=== PATIENT | male | born 1965 | race Caucasian/White ===

== ENCOUNTER 2020-10-24 06:18 | Inpatient (IN) | payer BC ==
[~2020-10-24] VITALS: Ht 177.8 cm; Wt 79.2 kg
[2020-10-24] MEDS ORDERED: SODIUM CHLORIDE FLUSH 10ML SYR IVF ONE (07:00)
[2020-10-24 07:06] LABS: BASOPHILS % (AUTO) 0 % (0-1); EOSINOPHILS % (AUTO) 0 % (1-7); LYMPHOCYTES % (AUTO) 7 % (22-44); MEAN CORPUSCULAR HEMOGLOBIN 31.3 pg (27.5-34.5); MEAN CORPUSCULAR HGB CONC 33.7 g/dL (33.2-36.2); MEAN PLATELET VOLUME 8.9 fL (7.4-10.4); MONOCYTES % (AUTO) 4 % (2-9); NEUTROPHILS % (AUTO) 88 % (42-75); PLATELET COUNT 219 x10^3/uL (130-400); RED BLOOD COUNT 4.37 x10^6/uL (4.38-5.82); RED CELL DISTRIBUTION WIDTH 12.5 % (9.4-14.8)
[2020-10-24 07:14] LABS: ALANINE AMINOTRANSFERASE 38 U/L (12-78); ALBUMIN 3.9 g/dL (3.4-5.0); ANION GAP 8 mmol/L (5-15); CALCIUM 8.5 mg/dL (8.5-10.1); CHLORIDE 103 mmol/L (98-107); CREATININE 0.95 mg/dL (0.7-1.3)
[2020-10-24 07:18] LABS: ALKALINE PHOSPHATASE 52 U/L (45-117); BILIRUBIN,TOTAL 0.5 mg/dL (0.2-1.0); TOTAL PROTEIN 7.2 g/dL (6.4-8.2)
[2020-10-24 07:20] LABS: MD SCAN
[2020-10-24] MEDS ORDERED: ASPIRIN 81 MG TABLET CHEW ONE ×2 (07:21→09:01)
[2020-10-24] MEDS ORDERED: ONDANSETRON 2MG/ML, 2ML ONE (07:21)
[2020-10-24] MEDS ORDERED: ONDANSETRON 2MG/ML, 2ML IVPush ONE (07:30)
[2020-10-24] MEDS ORDERED: ASPIRIN 81 MG TABLET CHEW PO ONE ×2 (07:30→09:00)
--- NOTE | 2020-10-24 07:31 | NUR ---
PT LAYING ON JOSE, FAMILY AT BS. NAD. NO NEEDS AT THIS TIME. CALL LIGHT WITHIN REACH.
[2020-10-24] MEDS ORDERED: MULT-658 PO (07:37)
[2020-10-24] MEDS ORDERED: UBID100C41 PO (07:37)
[2020-10-24] MEDS ORDERED: PLAN450T PO (07:37)
[2020-10-24] MEDS ORDERED: HEPARIN 25,000 UNITS/250ML PMX 250 ML IV PRN (08:00)
[2020-10-24] MEDS ORDERED: HEPARIN 5,000 UNITS/ML, 1ML IV PRN (08:00)
[2020-10-24] MEDS ORDERED: HEPARIN 5,000 UNITS/ML, 1ML IV ONE (08:00)
[2020-10-24] MEDS ORDERED: HEPARIN 5,000 UNITS/ML, 1ML ONE (08:03)
[2020-10-24] MEDS ORDERED: HEPARIN 25,000 UNITS/250ML PMX 250 ML ONE (08:03)
--- NOTE | 2020-10-24 08:35 | NUR ---
PT CALMLY LAYING ON THE GURNEY. NAD/VSS. COMFORT MEASURES PROVIDED. CALL LIGHT WITHIN REACH.
[2020-10-24] MEDS ORDERED: LABETALOL 5MG/ML, 20ML IVPush PRN (09:00)
[2020-10-24] MEDS ORDERED: ONDANSETRON 2MG/ML, 2ML IVPush PRN (09:00)
[2020-10-24] MEDS ORDERED: ACETAMINOPHEN 325 MG TABLET PO PRN (09:00)
[2020-10-24] MEDS ORDERED: ENALAPRILAT 1.25 MG/ML, 2ML IVPush PRN (09:00)
[2020-10-24] MEDS ORDERED: DOCUSATE 100 MG CAPSULE PO PRN (09:00)
[2020-10-24] MEDS ORDERED: MORPHINE SULFATE 4 MG/ML, 1ML IVPush PRN (09:00)
--- NOTE | 2020-10-24 09:25 | NUR ---
Pt to be admitted to CARDIAC TELE, room 505. Report called to LOU.
--- NOTE | 2020-10-24 09:40 | NUR ---
DELAY IN TRANSPORT D/T US AT BS
[2020-10-24 10:44] VITALS: BP 124/65
[2020-10-24] MEDS ORDERED: GLUC-165 PO (11:06)
[2020-10-24] MEDS: METOPROLOL TARTRATE 25 MG TAB PO SCH ×2 (11:45→21:48)
[2020-10-24 13:00] VITALS: BP 129/75
[2020-10-24] MEDS ORDERED: MIDAZOLAM 1 MG/ML, 5ML ONE (15:56)
[2020-10-24] MEDS ORDERED: FENTANYL PF 100 MCG/2ML ONE (15:56)
[2020-10-24] MEDS ORDERED: VERAPAMIL 2.5 MG/ML, 2ML ONE (15:56)
[2020-10-24] MEDS ORDERED: LIDOCAINE-MPF 1%, 5ML ONE (15:56)
[2020-10-24] MEDS ORDERED: HEPARIN 1,000 UNITS/ML, 10ML ONE (15:57)
[2020-10-24] MEDS ORDERED: TICAGRELOR 90 MG TABLET ONE (16:44)
[2020-10-24] MEDS ORDERED: BIVALIRUDIN 250 MG ONE (16:44)
[2020-10-24] MEDS ORDERED: SODIUM CHLORIDE 0.9% 1,000 ML IV SCH (17:30)
[2020-10-24] MEDS ORDERED: BIVALIRUDIN 250 MG in SODIUM CHLORIDE 0.9% 50 ML IV SCH (17:30)
[2020-10-24 21:19] VITALS: BP 117/74
[2020-10-24] MEDS: ATORVASTATIN 40 MG TABLET PO SCH (21:48)
[2020-10-24] MEDS: TICAGRELOR 90 MG TABLET PO SCH (21:48)
[2020-10-25 01:39] VITALS: BP 105/64
[2020-10-25 05:09] LABS: BASOPHILS % (AUTO) 0 % (0-1); EOSINOPHILS % (AUTO) 0 % (1-7); LYMPHOCYTES % (AUTO) 13 % (22-44); MEAN CORPUSCULAR HEMOGLOBIN 31.9 pg (27.5-34.5); MEAN CORPUSCULAR HGB CONC 34.6 g/dL (33.2-36.2); MEAN PLATELET VOLUME 9.2 fL (7.4-10.4); MONOCYTES % (AUTO) 10 % (2-9); NEUTROPHILS % (AUTO) 76 % (42-75); PLATELET COUNT 173 x10^3/uL (130-400); RED BLOOD COUNT 3.89 x10^6/uL (4.38-5.82); RED CELL DISTRIBUTION WIDTH 12.8 % (9.4-14.8)
[2020-10-25 05:10] LABS: MD NO
[2020-10-25 05:24] LABS: ALBUMIN 3.3 g/dL (3.4-5.0); ANION GAP 6 mmol/L (5-15); CALCIUM 8.5 mg/dL (8.5-10.1); CHLORIDE 109 mmol/L (98-107)
[2020-10-25 05:36] LABS: ALANINE AMINOTRANSFERASE 48 U/L (12-78); ALKALINE PHOSPHATASE 44 U/L (45-117); BILIRUBIN,TOTAL 0.9 mg/dL (0.2-1.0); CHOL/HDL RATIO 3.7; CHOLESTEROL, TOTAL 202 mg/dL (140-239); CREATININE 0.85 mg/dL (0.7-1.3); HDL CHOL % 27 % (26-37); HDL CHOLESTEROL (DIRECT) 54 mg/dL (40-60); LDL CHOLESTEROL,CALCULATED 106 mg/dL (54-169); TOTAL PROTEIN 6.3 g/dL (6.4-8.2); TRIGLYCERIDES 211 mg/dL (50-200); VLDL CHOLESTEROL 42 mg/dL (0-25)
[2020-10-25] MEDS ORDERED: ASPIRIN 325 MG TABLET EC PO SCH (06:00)
[2020-10-25] MEDS ORDERED: ASPIRIN 81 MG TABLET EC PO SCH (06:00)
[2020-10-25 07:54] VITALS: BP 127/78
[2020-10-25] MEDS: ASPIRIN 81 MG TABLET EC PO SCH (09:00)
[2020-10-25] MEDS: TICAGRELOR 90 MG TABLET PO SCH ×2 (09:19→21:26)
[2020-10-25] MEDS: METOPROLOL TARTRATE 25 MG TAB PO SCH ×2 (09:19→21:26)
[2020-10-25 13:39] VITALS: BP 109/69
[2020-10-25 21:06] VITALS: BP 127/78
[2020-10-25] MEDS: ATORVASTATIN 40 MG TABLET PO SCH (21:26)
[2020-10-26 02:48] VITALS: BP 116/78
[2020-10-26 05:03] LABS: BASOPHILS % (AUTO) 0 % (0-1); EOSINOPHILS % (AUTO) 0 % (1-7); LYMPHOCYTES % (AUTO) 19 % (22-44); MD NO; MEAN CORPUSCULAR HGB CONC 34.2 g/dL (33.2-36.2); MEAN PLATELET VOLUME 9.4 fL (7.4-10.4); MONOCYTES % (AUTO) 11 % (2-9); NEUTROPHILS % (AUTO) 69 % (42-75); PLATELET COUNT 170 x10^3/uL (130-400); RED BLOOD COUNT 4.05 x10^6/uL (4.38-5.82); RED CELL DISTRIBUTION WIDTH 12.7 % (9.4-14.8)
[2020-10-26 05:12] LABS: ANION GAP 8 mmol/L (5-15); CALCIUM 8.6 mg/dL (8.5-10.1); CHLORIDE 109 mmol/L (98-107); CREATININE 0.81 mg/dL (0.7-1.3)
[2020-10-26 07:05] VITALS: BP 164/94
[2020-10-26] MEDS ORDERED: TICA90TA PO (08:03)
[2020-10-26] MEDS ORDERED: ATOR40TA78 PO (08:03)
[2020-10-26] MEDS ORDERED: ASPI81TA45 PO (08:03)
[2020-10-26] MEDS ORDERED: METO25TA35 PO (08:03)
[2020-10-26] MEDS: TICAGRELOR 90 MG TABLET PO SCH (08:34)
[2020-10-26] MEDS: METOPROLOL TARTRATE 25 MG TAB PO SCH (08:34)
[2020-10-26] MEDS: ASPIRIN 81 MG TABLET EC PO SCH (08:34)
[2020-10-26 13:30] VITALS: BP 102/60
== END 2020-10-26 09:25 | disposition home or self-care (01) | DRG 247 ==
LOC: ED 06:43 → SUATTDRO 08:35 → 5SO 08:35 → DCLOUNGE 10-26 09:12
PROVIDERS: ADMIT Internal Medicine; ATTEND Internal Medicine
PROC: 4A023N7 Measurement of Cardiac Sampling and Pressure, Left Heart, Percutaneous Approach (ICD-10-PCS; principal; 2020-10-24)
PROC: 027035Z Dilation of Coronary Artery, One Artery with Two Drug-eluting Intraluminal Devices, Percutaneous Approach (ICD-10-PCS; 2020-10-24)
PROC: B2111ZZ Fluoroscopy of Multiple Coronary Arteries using Low Osmolar Contrast (ICD-10-PCS; 2020-10-24)
DX: I21.4 Non-ST elevation (NSTEMI) myocardial infarction (principal); E87.1 Hypo-osmolality and hyponatremia; F10.20 Alcohol dependence, uncomplicated; D72.829 Elevated white blood cell count, unspecified; E78.00 Pure hypercholesterolemia, unspecified; Z86.16 Personal history of COVID-19; R73.9 Hyperglycemia, unspecified; E78.5 Hyperlipidemia, unspecified; I25.10 Atherosclerotic heart disease of native coronary artery without angina pectoris; I25.2 Old myocardial infarction; Z87.891 Personal history of nicotine dependence; Z95.5 Presence of coronary angioplasty implant and graft; Z82.49 Family history of ischemic heart disease and other diseases of the circulatory system
CPT/HCPCS: 36415; 93458; 96374; 99285; C9600; 71045; 80048; 80053; 80061; 83036; 83735; 83880; 84443; 84484; 85025; 85520; 93005; 93306; 99156; 99157; C1769; C1894; G0378; J0583; J1644; J2250; J2405; J3010; C1725; C1874; C1887; Q9967